=== PATIENT | female | born 1945 | race Caucasian/White ===

== ENCOUNTER 2016-11-23 10:48 | Day surgery (SDC) | payer MEDICARE ==
[~2016-11-23] VITALS: Ht 154.9 cm; Wt 57.6 kg
[~2016-11-23 10:48] MED LIST: ACETAMIN325 MG PO; ACTOS15 MG OR; ADLT ASA LOW81 MG PO; ALPRAZOLAM1 MG PO; ASPIRIN ADULT L81 M2 PO; BACTRIM DS1 TAB PO; BENAZEPRIL20 MG OR; CEPHALEXIN500 MG PO; CIPROFLOXACN500 MG PO; CLINORIL PO; CLONAZEP ODT1 MG OR; DIOVAN HCT160 MG/25 PO; DIOVAN80 MG PO; ENALAPRIL20 MG OR; HYDROCHLORO25 MG/TAB PO; KLONOPIN1 MG OR; KLONOPIN2 MG OR; LISINOPRIL10 MG PO; LORTAB 1010 MG PO; LORTAB 5 OR; LOTENSIN HCT1 TA3 OR; LOTREL 5/101 CAP OR; MEDDOSEPAK PO; NITROGLYCER0.4 MG SL; NITROGLYCER0.4 MG/HR SL; NITROLINGUAL SPRAY D TL; NITROQUICK0.4 MG SL; NITROSTAT0.4 MG SL; OMEPRAZOLE20 M2 PO; OMEPRAZOLE20 MG PO; OXYCODONE HCL5 MG PO; PRAVASTATIN80 MG OR; PREVACID30 M1 OR; PREVACID30 M2 OR; PREVACID30 M3 PO; PRILOSEC20 MG PO; PROAIR HFA IN; PROTONIX40 M2 PO; SERTRALINE50 MG PO; SUCRALFATE1 GM PO; TESSALON PER100 MG PO; TRAMADOL HCL50 MG PO; ULTRAM50 M1 PO; ULTRAM50 MG OR; VENTOLIN HFA IN; VICODIN OR; VICODIN1 TAB OR; VISTARIL 50MG C50 MG PO; XANAX1 MG PO; ZANTAC150 M1 PO; ZPAK PO
[2016-11-23 12:47] VITALS: BP 158/72
== END 2016-11-23 12:58 | disposition home or self-care (01) ==
LOC: ENDO 10:48 → ORM 13:55 → ENDO 14:20
PROVIDERS: ATTEND Internal Medicine Gastroenterology
PROC: 0DBL8ZX Excision of Transverse Colon, Via Natural or Artificial Opening Endoscopic, Diagnostic (ICD-10-PCS; principal; 2016-11-23)
PROC: 0DBE8ZX Excision of Large Intestine, Via Natural or Artificial Opening Endoscopic, Diagnostic (ICD-10-PCS; 2016-11-23)
DX: K57.31 Diverticulosis of large intestine without perforation or abscess with bleeding (principal); R19.7 Diarrhea, unspecified; R10.32 Left lower quadrant pain; R10.31 Right lower quadrant pain; R63.4 Abnormal weight loss; K64.4 Residual hemorrhoidal skin tags; D12.3 Benign neoplasm of transverse colon; K52.832 Lymphocytic colitis; K64.8 Other hemorrhoids; K21.9 Gastro-esophageal reflux disease without esophagitis; K29.70 Gastritis, unspecified, without bleeding; I10 Essential (primary) hypertension; F41.9 Anxiety disorder, unspecified

== ENCOUNTER 2016-12-03 11:14 | Emergency (ER) | payer MEDICARE ==
[~2016-12-03] VITALS: Ht 154.9 cm; Wt 55.0 kg
[2016-12-03 11:41] LABS: HEMATOCRIT 35.3 % (37.0-47.0); HEMOGLOBIN 11.7 g/dl (12.0-16.0); IMMATURE GRANULOCYTES 0.3 % (0.0-1.0); MEAN CELL VOLUME 86.3 fL CALC (80.0-100.0); MEAN CORPUSCULAR HGB 28.6 pG CALC (26.0-32.0); MEAN CORPUSCULAR HGB CONC 33.1 g/L CALC (32.0-36.0); NEUT# 7.17 thou/uL (2.00-7.15); RED BLOOD COUNT 4.09 mill/uL (4.20-5.60); RED CELL DISTRI WIDTH 13.3 % (11.5-15.5)
[2016-12-03 11:57] LABS: AMYLASE 35 u/l (30-110); LIPASE 20 u/l (23-300)
[2016-12-03 11:59] LABS: ALKALINE PHOSPHATASE 93 u/l (38-126); ANION GAP 16 (6-22 (CALC)); BILIRUBIN, TOTAL 0.7 mg/dL (0.0-1.4); BUN 15 mg/dL (8-23); BUN/CREATININE RATIO 14 (12-20 (CALC)); CALCIUM 9.3 mg/dL (8.4-10.2); CARBON DIOXIDE 20 mmol/l (22-30); CHLORIDE 103 mmol/l (95-108); CREATININE 1.1 mg/dL (0.5-1.0); GFR 49 ML/MIN (>=60 (CALC)); GFR FOR AFR.AMER. 59 ML/MIN (>=60 (CALC)); GLUCOSE 100 mg/dL (82-115); POTASSIUM 4.5 mmol/l (3.5-5.1); SGOT/AST 24 u/l (9-36); SGPT/ALT 20 u/l (11-66); SODIUM 134 mmol/l (137-146); TOTAL PROTEIN 7.2 g/dL (6.3-8.2)
[2016-12-03 12:10] LABS: MYOGLOBIN 66 ng/mL (0 - 62)
[2016-12-03 15:07] LABS: URINE BILIRUBIN - DIPSTICK NEGATIVE (NEGATIVE); URINE BLOOD DIPSTICK SMALL (NEGATIVE); URINE CLARITY CLEAR; URINE COLOR YELLOW; URINE GLUCOSE - DIPSTICK NEGATIVE (NEGATIVE); URINE KETONE NEGATIVE (NEGATIVE); URINE LEUK ESTERASE TRACE (NEGATIVE); URINE NITRITE - DIPSTICK NEGATIVE (Negative); URINE PROTEIN - DIPSTICK NEGATIVE (NEG-TRACE); URINE UROBILINOGEN - DIPSTICK 0.2 E.U./dL (0.2)
[2016-12-03 15:16] LABS: URINE SQUAMOUS EPITHELIAL CELL FEW EPI/hpf (0-FEW)
[2016-12-03 16:59] VITALS: BP 123/74
== END 2016-12-03 17:14 | disposition home or self-care (01) ==
LOC: ED 11:14
PROVIDERS: Emergency Medicine
DX: R07.89 Other chest pain (principal); I38 Endocarditis, valve unspecified; K21.9 Gastro-esophageal reflux disease without esophagitis; F17.210 Nicotine dependence, cigarettes, uncomplicated

== ENCOUNTER 2017-01-30 09:55 | Emergency (ER) | payer MEDICARE ==
[~2017-01-30] VITALS: Ht 154.9 cm; Wt 59.0 kg
[2017-01-30 10:57] LABS: HEMATOCRIT 37.8 % (37.0-47.0); HEMOGLOBIN 12.2 g/dl (12.0-16.0); IMMATURE GRANULOCYTES 0.8 % (0.0-1.0); MEAN CELL VOLUME 87.5 fL CALC (80.0-100.0); MEAN CORPUSCULAR HGB 28.2 pG CALC (26.0-32.0); MEAN CORPUSCULAR HGB CONC 32.3 g/L CALC (32.0-36.0); NEUT# 5.41 thou/uL (2.00-7.15); RED BLOOD COUNT 4.32 mill/uL (4.20-5.60); RED CELL DISTRI WIDTH 13.4 % (11.5-15.5)
[2017-01-30] MEDS ORDERED: NITROGLYCE0.4 MG/SPR (11:05)
[2017-01-30 11:07] LABS: ALBUMIN 3.9 g/dL (3.2-5.0); ALKALINE PHOSPHATASE 121 u/l (38-126); ANION GAP 18 (6-22 (CALC)); BILIRUBIN, TOTAL 0.4 mg/dL (0.0-1.4); BUN 11 mg/dL (8-23); BUN/CREATININE RATIO 11 (12-20 (CALC)); CALCIUM 9.7 mg/dL (8.4-10.2); CARBON DIOXIDE 23 mmol/l (22-30); CHLORIDE 103 mmol/l (95-108); GFR 54 ML/MIN (>=60 (CALC)); GFR FOR AFR.AMER. > 60 ML/MIN (>=60 (CALC)); GLUCOSE 94 mg/dL (82-115); MAGNESIUM 1.6 mg/dL (1.6-2.3); POTASSIUM 4.7 mmol/l (3.5-5.1); SGOT/AST 20 u/l (9-36); SGPT/ALT 24 u/l (11-66); SODIUM 139 mmol/l (137-146); TOTAL PROTEIN 6.9 g/dL (6.3-8.2)
[2017-01-30 12:17] LABS: URINE BILIRUBIN - DIPSTICK NEGATIVE (NEGATIVE); URINE BLOOD DIPSTICK SMALL (NEGATIVE); URINE CLARITY CLEAR; URINE COLOR YELLOW; URINE GLUCOSE - DIPSTICK NEGATIVE (NEGATIVE); URINE KETONE NEGATIVE (NEGATIVE); URINE LEUK ESTERASE NEGATIVE (NEGATIVE); URINE NITRITE - DIPSTICK NEGATIVE (Negative); URINE PH 5.5 (4.5-8.0); URINE PROTEIN - DIPSTICK NEGATIVE (NEG-TRACE); URINE SPECIFIC GRAVITY <=1.005; URINE UROBILINOGEN - DIPSTICK 0.2 E.U./dL (0.2)
[2017-01-30 12:25] LABS: URINE RBC 0-2 RBC/hpf (0-5)
[2017-01-30 12:26] LABS: URINE SQUAMOUS EPITHELIAL CELL FEW EPI/hpf (0-FEW)
[2017-01-30 14:32] LABS: COCAINE NEGATIVE (NEGATIVE); METHADONE NEGATIVE (NEGATIVE); TETRAHYDROCANNABIONOL NEGATIVE (NEGATIVE); TRICYLIC ANTIDEPRESSANTS NEGATIVE (NEGATIVE)
[2017-01-30 14:33] LABS: BARBITURATES NEGATIVE (NEGATIVE); OXCYCODONE NEGATIVE (NEGATIVE)
[2017-01-30 17:20] VITALS: BP 165/77
== END 2017-01-30 17:24 ==
LOC: ED 09:55
PROVIDERS: Emergency Medicine
DX: T46.4X2A Poisoning by angiotensin-converting-enzyme inhibitors, intentional self-harm, initial encounter (principal); I10 Essential (primary) hypertension; F32.9 Major depressive disorder, single episode, unspecified

== ENCOUNTER 2017-06-05 05:48 | Emergency (ER) | payer MEDICARE ==
[~2017-06-05] VITALS: Ht 154.9 cm; Wt 59.0 kg
[~2017-06-05 05:48] MED LIST changes: +NITROGLYCE0.4 MG/SPR
[2017-06-05 06:48] LABS: HEMATOCRIT 39.7 % (37.0-47.0); HEMOGLOBIN 12.7 g/dl (12.0-16.0); IMMATURE GRANULOCYTES 0.2 % (0.0-1.0); MEAN CELL VOLUME 87.4 fL CALC (80.0-100.0); NEUT# 6.58 thou/uL (2.00-7.15); RED BLOOD COUNT 4.54 mill/uL (4.20-5.60); RED CELL DISTRI WIDTH 13.7 % (11.5-15.5)
[2017-06-05 07:01] LABS: ALBUMIN 4.6 g/dL (3.2-5.0); ALKALINE PHOSPHATASE 126 u/l (38-126); ANION GAP 17 (6-22 (CALC)); BILIRUBIN, TOTAL 0.3 mg/dL (0.0-1.4); BUN 16 mg/dL (8-23); BUN/CREATININE RATIO 16 (12-20 (CALC)); CARBON DIOXIDE 22 mmol/l (22-30); CHLORIDE 111 mmol/l (95-108); GFR 54 ML/MIN (>=60 (CALC)); GFR FOR AFR.AMER. > 60 ML/MIN (>=60 (CALC)); POTASSIUM 3.9 mmol/l (3.5-5.1); SGOT/AST 24 u/l (9-36); SGPT/ALT 27 u/l (11-66); SODIUM 145 mmol/l (137-146); TOTAL PROTEIN 7.7 g/dL (6.3-8.2)
[2017-06-05 07:06] LABS: AMYLASE 34 u/l (30-110); LIPASE 37 u/l (23-300)
[2017-06-05 07:11] LABS: MYOGLOBIN 52 ng/mL (0 - 62)
[2017-06-05 08:25] LABS: URINE BILIRUBIN - DIPSTICK NEGATIVE (NEGATIVE); URINE BLOOD DIPSTICK SMALL (NEGATIVE); URINE COLOR YELLOW; URINE GLUCOSE - DIPSTICK NEGATIVE (NEGATIVE); URINE KETONE NEGATIVE (NEGATIVE); URINE LEUK ESTERASE NEGATIVE (NEGATIVE); URINE NITRITE - DIPSTICK NEGATIVE (Negative); URINE PH 5.5 (4.5-8.0); URINE PROTEIN - DIPSTICK NEGATIVE (NEG-TRACE); URINE UROBILINOGEN - DIPSTICK 0.2 E.U./dL (0.2)
[2017-06-05 08:31] LABS: URINE CLARITY CLEAR
[2017-06-05 08:38] LABS: INFLUENZA A NONE DETECTED (NONE DETECT); INFLUENZA B NONE DETECTED (NONE DETECT)
[2017-06-05 08:39] LABS: URINE WBC 0-2 WBC/hpf (0-5)
[2017-06-05 08:40] LABS: URINE RBC 0-2 RBC/hpf (0-5); URINE SQUAMOUS EPITHELIAL CELL FEW EPI/hpf (0-FEW)
[2017-06-05] MEDS ORDERED: XANAX0.25 MG PO (09:22)
[2017-06-05 09:35] VITALS: BP 162/84
== END 2017-06-05 09:40 | disposition home or self-care (01) ==
LOC: ED 05:48
PROVIDERS: Emergency Medicine
DX: I10 Essential (primary) hypertension (principal); F41.9 Anxiety disorder, unspecified; R07.9 Chest pain, unspecified; Z91.14 Patient's other noncompliance with medication regimen

== ENCOUNTER 2017-09-25 22:24 | Observation (INO) | payer MEDICARE ==
[~2017-09-25] VITALS: Ht 157.5 cm; Wt 62.3 kg
[~2017-09-25 22:24] MED LIST changes: +XANAX0.25 MG PO
[2017-09-25] MEDS ORDERED: HYZAAR1 TA2 PO (22:39)
[2017-09-25 23:25] LABS: HEMATOCRIT 36.2 % (37.0-47.0); HEMOGLOBIN 11.7 g/dl (12.0-16.0); IMMATURE GRANULOCYTES 0.3 % (0.0-1.0); MEAN CELL VOLUME 88.5 fL CALC (80.0-100.0); MEAN CORPUSCULAR HGB 28.6 pG CALC (26.0-32.0); MEAN CORPUSCULAR HGB CONC 32.3 g/L CALC (32.0-36.0); NEUT# 6.3 thou/uL (2.00-7.15); RED BLOOD COUNT 4.09 mill/uL (4.20-5.60); RED CELL DISTRI WIDTH 13.5 % (11.5-15.5)
[2017-09-25 23:30] LABS: ALBUMIN 4.2 g/dL (3.2-5.0); ALKALINE PHOSPHATASE 139 u/l (38-126); ANION GAP 13 (6-22 (CALC)); BILIRUBIN, TOTAL 0.2 mg/dL (0.0-1.4); BUN 25 mg/dL (8-23); BUN/CREATININE RATIO 21 (12-20 (CALC)); CARBON DIOXIDE 24 mmol/l (22-30); CHLORIDE 105 mmol/l (95-108); CREATININE 1.2 mg/dL (0.5-1.0); GFR 44 ML/MIN (>=60 (CALC)); GFR FOR AFR.AMER. 53 ML/MIN (>=60 (CALC)); POTASSIUM 3.5 mmol/l (3.5-5.1); SGOT/AST 36 u/l (9-36); SGPT/ALT 34 u/l (11-66); SODIUM 139 mmol/l (137-146); TOTAL PROTEIN 7.7 g/dL (6.3-8.2)
[2017-09-25 23:42] LABS: MYOGLOBIN 55 ng/mL (0 - 62)
[2017-09-25 23:50] LABS: AMYLASE 55 u/l (30-110); LIPASE 45 u/l (23-300)
[2017-09-26 01:00] VITALS: BP 147/76
[2017-09-26 02:42] LABS: URINE BILIRUBIN - DIPSTICK NEGATIVE (NEGATIVE); URINE BLOOD DIPSTICK SMALL (NEGATIVE); URINE COLOR YELLOW; URINE GLUCOSE - DIPSTICK NEGATIVE (NEGATIVE); URINE KETONE NEGATIVE (NEGATIVE); URINE LEUK ESTERASE SMALL (Negative); URINE NITRITE - DIPSTICK NEGATIVE (Negative); URINE PROTEIN - DIPSTICK NEGATIVE (NEG-TRACE); URINE SPECIFIC GRAVITY <=1.005; URINE UROBILINOGEN - DIPSTICK 0.2 E.U./dL (0.2)
[2017-09-26 02:49] LABS: URINE CLARITY CLEAR
[2017-09-26 03:05] LABS: URINE SQUAMOUS EPITHELIAL CELL RARE EPI/hpf (0-FEW)
[2017-09-26 04:41] VITALS: BP 121/67
[2017-09-26 09:00] VITALS: BP 156/78
[2017-09-26 09:14] LABS: CHOLESTEROL HDL RATIO 2.4 (<4.4 (CALC)); MAGNESIUM 1.7 mg/dL (1.6-2.3)
[2017-09-26 15:34] VITALS: BP 119/74
[2017-09-26] MEDS ORDERED: PANTOPRAZOLE SO40 M1 PO (16:56)
== END 2017-09-26 19:15 | disposition home or self-care (01) ==
LOC: ED 22:24 → ED-I 23:10 → ED 09-26 00:07 → MS2 09-26 00:08
PROVIDERS: Emergency Medicine; Nurse Practitioner Family; ADMIT Internal Medicine; ATTEND Internal Medicine
DX: R07.9 Chest pain, unspecified (principal); I12.9 Hypertensive chronic kidney disease with stage 1 through stage 4 chronic kidney disease, or unspecified chronic kidney disease; N18.3 Chronic kidney disease, stage 3 (moderate); I48.91 Unspecified atrial fibrillation; F41.8 Other specified anxiety disorders; I38 Endocarditis, valve unspecified

== ENCOUNTER 2017-11-14 23:18 | Emergency (ER) | payer MEDICARE ==
[~2017-11-14] VITALS: Ht 157.5 cm; Wt 62.7 kg
[~2017-11-14 23:18] MED LIST changes: +HYZAAR1 TA2 PO; +PANTOPRAZOLE SO40 M1 PO
[2017-11-14 23:50] LABS: HEMATOCRIT 35.9 % (37.0-47.0); HEMOGLOBIN 11.9 g/dl (12.0-16.0); IMMATURE GRANULOCYTES 0.2 % (0.0-5.0); MEAN CORPUSCULAR HGB 29.2 pG CALC (26.0-32.0); MEAN CORPUSCULAR HGB CONC 33.1 g/L CALC (32.0-36.0); NEUT# 4.77 thou/uL (2.00-7.15); RED BLOOD COUNT 4.08 mill/uL (4.20-5.60)
[2017-11-15 00:05] LABS: ALBUMIN 4.3 g/dL (3.2-5.0); ALKALINE PHOSPHATASE 113 u/l (38-126); ANION GAP 16 (6-22 (CALC)); BILIRUBIN, TOTAL 0.4 mg/dL (0.0-1.4); BUN 28 mg/dL (8-23); BUN/CREATININE RATIO 22 (12-20 (CALC)); CARBON DIOXIDE 21 mmol/l (22-30); CHLORIDE 108 mmol/l (95-108); CREATININE 1.3 mg/dL (0.5-1.0); GFR 40 ML/MIN (>=60 (CALC)); GFR FOR AFR.AMER. 48 ML/MIN (>=60 (CALC)); POTASSIUM 3.3 mmol/l (3.5-5.1); SGOT/AST 25 u/l (9-36); SGPT/ALT 31 u/l (11-66); SODIUM 142 mmol/l (137-146); TOTAL PROTEIN 7.7 g/dL (6.3-8.2)
[2017-11-15 00:17] LABS: MYOGLOBIN 102 ng/mL (0 - 62)
[2017-11-15 01:01] LABS: URINE BILIRUBIN - DIPSTICK NEGATIVE (NEGATIVE); URINE BLOOD DIPSTICK SMALL (NEGATIVE); URINE CLARITY SL CLOUDY; URINE COLOR YELLOW; URINE GLUCOSE - DIPSTICK NEGATIVE (NEGATIVE); URINE KETONE NEGATIVE (NEGATIVE); URINE LEUK ESTERASE MODERATE (NEGATIVE); URINE NITRITE - DIPSTICK NEGATIVE (Negative); URINE PH 5.5 (4.5-8.0); URINE PROTEIN - DIPSTICK NEGATIVE (NEG-TRACE); URINE SPECIFIC GRAVITY 1.015; URINE UROBILINOGEN - DIPSTICK 0.2 E.U./dL (0.2)
[2017-11-15 01:08] LABS: URINE BACTERIA FEW hpf; URINE MUCUS FEW hpf (NONE-FEW); URINE SQUAMOUS EPITHELIAL CELL MODERATE EPI/hpf (0-FEW)
[2017-11-15] MEDS ORDERED: BACTRIM DS1 TAB PO (01:09)
[2017-11-15] MEDS ORDERED: TRAMADOL HCL50 MG PO (01:09)
[2017-11-15] MEDS ORDERED: TORADOL PO (01:09)
[2017-11-15 01:40] VITALS: BP 137/62
== END 2017-11-15 01:45 | disposition home or self-care (01) ==
LOC: ED 23:18
PROVIDERS: Family Medicine
DX: R07.89 Other chest pain (principal); N39.0 Urinary tract infection, site not specified; R10.32 Left lower quadrant pain; B96.20 Unspecified Escherichia coli [E. coli] as the cause of diseases classified elsewhere; I10 Essential (primary) hypertension; I48.91 Unspecified atrial fibrillation; Z79.82 Long term (current) use of aspirin